=== PATIENT | male | born 1945 | race Caucasian/White ===

== ENCOUNTER → 2019-10-08 | Outpatient (CLI) | payer BC ==
--- NOTE | 2019-10-08 08:03 | US ---
EXAMINATION TYPE: US duplex aorta DATE OF EXAM: 10/08/2019 COMPARISON: NONE CLINICAL HISTORY: Z13.6 screening for cardiovascular disorders; Controlled HTN per patient. EXAM MEASUREMENTS: Abdominal Aorta: Proximal: 2.2 by 2.1cm Transverse Mid: 2.1 by 2.47cm Transverse Distal: 2.0cm Longitudinally by 2.1 cm transversely Bifurcation: Transverse Right LAVERNE = 1.1cm ; Transverse Left LAVERNE = 1.2cm Hyperechoic intimal wall thickening is noted throughout aorta with mildly ectatic appearance noted mi d and distally. PW Doppler and Color flow is documented within aorta. Atherosclerotic aorta with some ectasia but no greater than 3.0 cm AAA IMPRESSION: No greater than 3.0 cm AAA.
== END | disposition home or self-care (01) ==
LOC: RADUSWWP 07:23
PROVIDERS: ATTEND Family Medicine
DX: Z13.6 Encounter for screening for cardiovascular disorders (principal)
CPT/HCPCS: 93979

== ENCOUNTER → 2019-10-12 | Outpatient (CLI) | payer MEDICARE ==
--- NOTE | 2019-10-12 12:30 | XR ---
EXAMINATION TYPE: XR chest 2V DATE OF EXAM: 10/12/2019 COMPARISON: NONE TECHNIQUE: PA and lateral views submitted. HISTORY: Shortness of breath FINDINGS: The lungs are clear and there is no pneumothorax, pleural effusion, or focal pneumonia. Heart size normal. No overt failure. There is pleural thickening bilaterally. Hypertrophic change of the spine w ith degenerative changes. Correlate for diffuse idiopathic skeletal hyperostosis. IMPRESSION: 1. No acute process. Bilateral pleural thickening.
== END | disposition home or self-care (01) ==
LOC: RADXRMAIN 12:01
PROVIDERS: ATTEND Nurse Practitioner Family
DX: J92.9 Pleural plaque without asbestos (principal)
CPT/HCPCS: 71046

== ENCOUNTER 2021-05-07 02:52 | Emergency (ER) | payer MEDICARE ==
[2021-05-07 03:19] VITALS: RESP 18; TEMP 98.6
[2021-05-07] MEDS ORDERED: IPRATROPIUM-ALBUTEROL 3 ML NEB INHALATION STA (03:34)
--- NOTE | 2021-05-07 03:35 | ED ---
SOB HPI - General Chief Complaint: Shortness of Breath Stated Complaint: Chest Congestion Time Seen by Provider: 05/07/21 02:53 Source: patient, EMS, RN notes reviewed, old records reviewed Mode of arrival: EMS Limitations: no limitations - History of Present Illness Initial Comments: This is a 75-year-old male to the ER for evaluation patient presents today for evaluation of some neck pain swelling of his neck pain. Patient states he can't take a deep breath at times. Feels he can't get his cough today body. These are symptoms that isn't doing with for some time. Patient denies any specific shortness of breath no fevers no noted swelling. Able to eat and drink without difficulty. No shortness of breath with exertion. No chest pain. A she states he symptoms get difficult more difficulty laying down and he feels like he has to burp but can't MD Complaint: cough, anxiety -: days(s) Radiation: neck Severity: mild Severity scale (1-10): 2 Quality: aching Consistency: intermittent Improves With: nothing Worsens With: nothing Known History Of: other (none) Context: other (none) Associated Symptoms: cough Treatments Prior to Arrival: none - Related Data Allergies Allergy/AdvReac Type Severity Reaction Status Date / Time No Known Allergies Allergy Verified 05/07/21 04:08 Review of Systems ROS Statement: Those systems with pertinent positive or pertinent negative responses have been documented in the HPI. ROS Other: All systems not noted in ROS Statement are negative. Past Medical History Past Medical History: No Reported History History of Any Multi-Drug Resistant Organisms: None Reported Past Surgical History: Appendectomy, Hernia Repair Additional Past Surgical History / Comment(s): Cataracts, TURP. Smoking Status: Never smoker Past Alcohol Use History: None Reported Past Drug Use History: None Reported General Exam Limitations: no limitations General appearance: alert, in no apparent distress Head exam: Present: atraumatic, normocephalic, normal inspection Eye exam: Present: normal appearance, PERRL, EOMI. Absent: scleral icterus, conjunctival injection, periorbital swelling ENT exam: Present: normal exam, mucous membranes moist Neck exam: Present: normal inspection. Absent: tenderness, meningismus, lymphadenopathy Respiratory exam: Present: normal lung sounds bilaterally. Absent: respiratory distress, wheezes, rales, rhonchi, stridor Cardiovascular Exam: Present: regular rate, normal rhythm, normal heart sounds. Absent: systolic murmur, diastolic murmur, rubs, gallop, clicks GI/Abdominal exam: Present: soft, normal bowel sounds. Absent: distended, tenderness, guarding, rebound, rigid Extremities exam: Present: normal inspection, full ROM, normal capillary refill. Absent: tenderness, pedal edema, joint swelling, calf tenderness Back exam: Present: normal inspection Neurological exam: Present: alert, oriented X3, CN II-XII intact Psychiatric exam: Present: normal affect, normal mood Skin exam: Present: warm, dry, intact, normal color. Absent: rash Course Vital Signs 05/07/21 05/07/21 05/07/21 03:05 03:19 04:21 Temperature 98.6 F Pulse Rate 75 83 70 Respiratory 18 18 Rate Blood Pressure 139/71 O2 Sat by Pulse 98 99 Oximetry 05/07/21 05/07/21 04:27 06:58 Temperature Pulse Rate 72 74 Respiratory 18 Rate Blood Pressure 140/69 O2 Sat by Pulse 99 Oximetry - Reevaluation(s) Reevaluation #1: 05/07/21 Medical record is reviewed Patient symptoms are improved here in the ER Patient feels comfortable for discharge home Medical Decision Making - Medical Decision Making 75 male with nonspecific symptoms but some neck pain shortness breath and cough. Patient says testing here is negative, patient is in no distress will follow-up with GI as an outpatient - Lab Data Result diagrams: 05/07/21 03:45 05/07/21 03:45 Lab Results 05/07/21 05/07/21 05/07/21 Range/Units 03:45 03:45 03:45 WBC 6.3 (3.8-10.6) k/uL RBC 4.70 (4.30-5.90) m/uL Hgb 15.0 (13.0-17.5) gm/dL Hct 44.1 (39.0-53.0) % MCV 93.9 (80.0-100.0) fL MCH 31.8 (25.0-35.0) pg MCHC 33.9 (31.0-37.0) g/dL RDW 11.9 (11.5-15.5) % Plt Count 200 (150-450) k/uL MPV 8.1 Neutrophils % 54 % Lymphocytes % 32 % Monocytes % 8 % Eosinophils % 3 % Basophils % 1 % Neutrophils # 3.4 (1.3-7.7) k/uL Lymphocytes # 2.0 (1.0-4.8) k/uL Monocytes # 0.5 (0-1.0) k/uL Eosinophils # 0.2 (0-0.7) k/uL Basophils # 0.1 (0-0.2) k/uL PT 11.3 (9.0-12.0) sec INR 1.0 (<1.2) APTT 23.9 (22.0-30.0) sec D-Dimer 0.29 (<0.60) mg/L FEU Sodium 137 (137-145) mmol/L Potassium 4.2 (3.5-5.1) mmol/L Chloride 105 (98-107) mmol/L Carbon Dioxide 23 (22-30) mmol/L Anion Gap 9 mmol/L BUN 25 H (9-20) mg/dL Creatinine 1.13 (0.66-1.25) mg/dL Est GFR (CKD-EPI)AfAm 73 (>60 ml/min/1.73 sqM) Est GFR (CKD-EPI)NonAf 63 (>60 ml/min/1.73 sqM) Glucose 101 H (74-99) mg/dL Plasma Lactic Acid Du (0.7-2.0) mmol/L Calcium 9.3 (8.4-10.2) mg/dL Magnesium 2.1 (1.6-2.3) mg/dL Total Bilirubin 1.0 (0.2-1.3) mg/dL AST 38 (17-59) U/L ALT 38 (4-49) U/L Alkaline Phosphatase 89 (38-126) U/L Troponin I (0.000-0.034) ng/mL NT-Pro-B Natriuret Pep pg/mL Total Protein 7.3 (6.3-8.2) g/dL Albumin 4.1 (3.5-5.0) g/dL 05/07/21 05/07/21 05/07/21 Range/Units 03:45 03:45 03:45 WBC (3.8-10.6) k/uL RBC (4.30-5.90) m/uL Hgb (13.0-17.5) gm/dL Hct (39.0-53.0) % MCV (80.0-100.0) fL MCH (25.0-35.0) pg MCHC (31.0-37.0) g/dL RDW (11.5-15.5) % Plt Count (150-450) k/uL MPV Neutrophils % % Lymphocytes % % Monocytes % % Eosinophils % % Basophils % % Neutrophils # (1.3-7.7) k/uL Lymphocytes # (1.0-4.8) k/uL Monocytes # (0-1.0) k/uL Eosinophils # (0-0.7) k/uL Basophils # (0-0.2) k/uL PT (9.0-12.0) sec INR (<1.2) APTT (22.0-30.0) sec D-Dimer (<0.60) mg/L FEU Sodium (137-145) mmol/L Potassium (3.5-5.1) mmol/L Chloride (98-107) mmol/L Carbon Dioxide (22-30) mmol/L Anion Gap mmol/L BUN (9-20) mg/dL Creatinine (0.66-1.25) mg/dL Est GFR (CKD-EPI)AfAm (>60 ml/min/1.73 sqM) Est GFR (CKD-EPI)NonAf (>60 ml/min/1.73 sqM) Glucose (74-99) mg/dL Plasma Lactic Acid Ud 1.1 (0.7-2.0) mmol/L Calcium (8.4-10.2) mg/dL Magnesium (1.6-2.3) mg/dL Total Bilirubin (0.2-1.3) mg/dL AST (17-59) U/L ALT (4-49) U/L Alkaline Phosphatase (38-126) U/L Troponin I <0.012 (0.000-0.034) ng/mL NT-Pro-B Natriuret Pep 83 pg/mL Total Protein (6.3-8.2) g/dL Albumin (3.5-5.0) g/dL - EKG Data -: EKG Interpreted by Me (EKG is sinus rhythm 69 WA 164 QRS 96 QTc 403) - Radiology Data Radiology results: report reviewed (CT soft tissue neck and chest x-ray are negative for acute disease), image reviewed Disposition Clinical Impression: Dyspnea, Cough, Neck pain Narrative: ? Esophageal Dysmotility Disposition: HOME SELF-CARE Condition: Good Instructions (If sedation given, give patient instructions): Neck Pain (ED) Is patient prescribed a controlled substance at d/c from ED?: No Referrals: Gal Mason MD [Primary Care Provider] - 1-2 days Shruti Ramirez MD [STAFF PHYSICIAN] - 1-2 days
[2021-05-07 03:59] LABS: Basophils # (A) 0.1 k/uL (0-0.2); Basophils % (A) 1 %; Eosinophils # (A) 0.2 k/uL (0-0.7); Eosinophils % (A) 3 %; HCT 44.1 % (39.0-53.0); Lymphocytes % (A) 32 %; MCH 31.8 pg (25.0-35.0); MCHC 33.9 g/dL (31.0-37.0); MCV 93.9 fL (80.0-100.0); Mean Platelet Volume 8.1; Monocytes # (A) 0.5 k/uL (0-1.0); Monocytes % (A) 8 %; Neutrophils # (A) 3.4 k/uL (1.3-7.7); Neutrophils % (A) 54 %; Platelet Count 200 k/uL (150-450); RDW 11.9 % (11.5-15.5); WBC 6.3 k/uL (3.8-10.6)
[2021-05-07 04:13] LABS: Partial Thromboplastin Time 23.9 sec (22.0-30.0); Prothrombin Time 11.3 sec (9.0-12.0)
[2021-05-07 04:23] LABS: Albumin 4.1 g/dL (3.5-5.0); Calcium 9.3 mg/dL (8.4-10.2); Magnesium 2.1 mg/dL (1.6-2.3); Potassium 4.2 mmol/L (3.5-5.1); Total Protein 7.3 g/dL (6.3-8.2)
--- NOTE | 2021-05-07 04:42 | XR ---
EXAMINATION TYPE: XR chest 1V portable DATE OF EXAM: 05/07/2021 COMPARISON: 10/12/2019 HISTORY: Short of breath TECHNIQUE: FINDINGS: There is no heart failure or confluent pneumonic infiltrate. Costophrenic angles are clear. There are chest leads. Bony thorax is intact. IMPRESSION: No active cardiopulmonary disease. Normal heart. No change.
--- NOTE | 2021-05-07 05:45 | CT ---
EXAMINATION TYPE: CT soft tissue neck w con DATE OF EXAM: 05/07/2021 COMPARISON: None HISTORY: CHEST, NECK PAIN CT DLP: 367.8 mGycm Automated exposure control for dose reduction was used. CONTRAST: Performed with IV Contrast, patient injected with 100 mL of Isovue 300. Images obtained from the aortic arch to the top of the frontal sinuses without IV contrast. Superior mediastinum is intact. There is no evidence of adenopathy. Thyroid gland appears normal. The re is normal contrast opacification of the carotid arteries and jugular veins. There is contrast opac ification of the vertebral arteries. There is plaque formation and 50% stenosis at the origin of the right internal carotid artery. There is plaque and 35% stenosis origin of the left internal carotid a rtery. Epiglottis is normal. The tongue appears intact. There is no evidence of pharyngeal mass. Submandibul ar salivary glands are symmetric. Parotid glands are symmetric. The tonsils and adenoids are within n ormal limits. There is fairly normal aeration of the paranasal sinuses. I see no bony destructive pro cess. There is minor spurring in the cervical spine. There are bilateral anterior triangle cervical lymph nodes that measure up to 1 cm. Mandible is intact. There is no evidence of orbital mass. Nasal bone is intact. IMPRESSION: There are some atherosclerotic vascular disease. Plaque formation and mild stenosis in the internal c arotid arteries bilaterally. No discrete neck mass. No suspicious cervical adenopathy.
[2021-05-07 07:01] VITALS: BP 140/69; PULSE 74
== END 2021-05-07 07:05 | disposition home or self-care (01) ==
LOC: EC 02:52
DX: R06.00 Dyspnea, unspecified (principal); M54.2 Cervicalgia
CPT/HCPCS: 36415; 94640; 93005; 85379; 83880; 80053; 83605; 83735; 84484; 85025; 85610; 85730; 71045; 70491; 99285; Q9967

== ENCOUNTER → 2021-05-24 | Outpatient (CLI) | payer MEDICARE ==
--- NOTE | 2021-05-24 10:20 | US ---
EXAMINATION TYPE: US duplex aorta DATE OF EXAM: 05/24/2021 COMPARISON: NONE CLINICAL HISTORY: I70.0 ATHEROSCLEROSIS OF AORTA. Controlled HTN, Prior smoker. EXAM MEASUREMENTS: Abdominal Aorta: Proximal: 2.7 x 2.9 Mid: 2.2 x 1.6 Distal: 1.9 x 1.8 Bifurcation: 0.9 x 0.9 0.9 x 1.2 Arteriosclerotic changes, no AAA seen at this time. IMPRESSION: 1. No suspicious changes for abdominal aortic aneurysm on screening ultrasound.
== END | disposition home or self-care (01) ==
LOC: RADUSWWP 08:50
PROVIDERS: ATTEND Family Medicine
DX: I70.0 Atherosclerosis of aorta (principal)
CPT/HCPCS: 93979

== ENCOUNTER 2021-07-12 08:11 | Day surgery (SDC) | payer MEDICARE ==
[2021-07-10 18:22] VITALS: BMI 29.7
[~2021-07-12 08:11] MED LIST: LACTATED RINGERS 1,000 ML IV SCH; LIDOCAINE 1% (10MG/ML) FOR IV START INTRADERMA PRN
[2021-07-12 08:36] VITALS: TEMP 97.9
[2021-07-12] MEDS ORDERED: LIDOCAINE 2% INJ 20 MG/ML (2 ML VIAL) ONE (09:18)
[2021-07-12] MEDS ORDERED: PROPOFOL 10 MG/ML 20 ML VIAL IV ONE (09:18)
--- NOTE | 2021-07-12 09:27 | P.PCN ---
Date of Procedure: 07/12/21 Procedure(s) Performed: BRIEF HISTORY: Patient is a 75-year-old, pleasant, white male scheduled for an upper endoscopy as a part of evaluation of gastroesophageal symptoms for the last few months duration. PROCEDURE PERFORMED: Esophagogastroduodenoscopy with biopsy. PREOPERATIVE DIAGNOSIS: GERD. IV sedation per anesthesia. PROCEDURE: After informed consent was obtained, the patient was brought into the endoscopy unit. IV sedation was administered by Anesthesia under continuous monitoring. Initially the Olympus GIF-140 video endoscope was inserted into the mouth. Esophagus intubated without any difficulty. It was gradually advanced into the stomach and duodenum and carefully examined. The bulb and the second part of the duodenum appeared normal. The scope at this time was withdrawn to the stomach, adequately insufflated with air, and upon careful examination, mucosa of the antrum, and mild gastritis and biopsies were done from this area. The body, cardia and the fundus appeared normal. The scope was then withdrawn into the esophagus. The GE junction was located at 38 cm from the incisors. Small hiatal hernia noted. The diaphragmatic impression was located at 41 cm from the incisors. The esophagus appeared normal. There were no erosions or ulcerations seen and the patient tolerated the procedure well. IMPRESSION: 1. Small hiatal hernia but no evidence of esophagitis. 2. Mild antral gastritis. RECOMMENDATIONS: The findings of this examination were discussed with the tri mccallum as well as his family. He was advised to continue with Protonix 40 mg daily and follow antireflux measures.
[2021-07-12 09:46] VITALS: BP 126/67; PULSE 65; RESP 16
== END 2021-07-12 10:10 | disposition home or self-care (01) ==
LOC: ORWHC2ENDO 08:11
PROVIDERS: ATTEND Internal Medicine Gastroenterology
DX: K21.9 Gastro-esophageal reflux disease without esophagitis (principal); K29.50 Unspecified chronic gastritis without bleeding; K44.9 Diaphragmatic hernia without obstruction or gangrene; Z79.1 Long term (current) use of non-steroidal anti-inflammatories (NSAID); Z79.899 Other long term (current) drug therapy; I10 Essential (primary) hypertension; E78.5 Hyperlipidemia, unspecified; N40.0 Benign prostatic hyperplasia without lower urinary tract symptoms; Z90.49 Acquired absence of other specified parts of digestive tract; Z98.42 Cataract extraction status, left eye; Z98.41 Cataract extraction status, right eye; Z98.890 Other specified postprocedural states
CPT/HCPCS: 88305; 43239; J2704; J2001